=== PATIENT | male | born 1960 | race Two or more races ===

== ENCOUNTER 2018-05-30 15:59 | Emergency (ER) | payer SELFPAY ==
[~2018-05-30] VITALS: Ht 188 cm; Wt 90.9 kg
[2018-05-30] MEDS ORDERED: AMIT50TA3 PO (16:08)
[2018-05-30 17:27] VITALS: BP 129/77
== END 2018-05-30 18:01 | disposition home or self-care (01) ==
LOC: EMS 16:01
DX: L30.9 Dermatitis, unspecified (principal); G47.00 Insomnia, unspecified; Z76.0 Encounter for issue of repeat prescription

== ENCOUNTER 2018-06-01 20:10 | Emergency (ER) | payer SELFPAY ==
[~2018-06-01 20:10] MED LIST: AMIT50TA3 PO
== END 2018-06-01 20:32 | disposition left against medical advice (07) ==
LOC: EMS 20:11
DX: Z76.0 Encounter for issue of repeat prescription (principal); Z53.21 Procedure and treatment not carried out due to patient leaving prior to being seen by health care provider